=== PATIENT | male | born 1950 | race Two or more races ===

== ENCOUNTER 2019-03-14 19:26 | Emergency (ER) | payer OTHER ==
[~2019-03-14] VITALS: Ht 177.8 cm; Wt 81.6 kg
--- NOTE | 2019-03-14 19:30 | NUR ---
PT BIB [facility] WITH A C/O WITNESSED SYNCOPAL EPISODE AT HOME. PT DENIES TRAUMA. PT STATED THAT THIS HAPPENED TO HIM BEFORE AND HE DID NOT GO TO THE HOSPITAL. PT USUALLY GOES TO [facility] AND ALL HIS MEDICAL RECORDS ARE THERE. 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 PT ALSO HAS A HX OF PROSTATE REMOVAL 5 YRS AGO. PT IS ON A STATIN FOR HIS CHOLESTEROL. PT IS AA&O X4. PT IS ON THE MONITOR AND CONTINUOUS PULSE OX. VSS.
--- NOTE | 2019-03-14 19:30 | NUR ---
DR MURPHY IS AT THE BEDSIDE EVALUATING THE PT.
--- NOTE | 2019-03-14 19:45 | NUR ---
PT WAS MOVED TO ER #[id number]. PT IS ON THE MONITOR AND CONITNUOUS PULSE OX.
[2019-03-14 19:48] LABS: BASOPHILS # (AUTO) 0.1 /CMM (0.0-0.2); BASOPHILS % (AUTO) 1.1 % (0.0-2.0); EOSINOPHILS % (AUTO) 1.6 % (0.0-6.0); HEMATOCRIT 40 % (39-51); HEMOGLOBIN 13.4 g/dL (13.5-17.5); LYMPHOCYTES # (AUTO) 2.3 /CMM (0.8-4.8); LYMPHOCYTES % (AUTO) 29.6 % (20.0-44.0); MEAN CORPUSCULAR HGB CONC 33 g/dl (31.0-36.0); MEAN CORPUSCULAR VOLUME 94 fL (80-96); MONOCYTES # (AUTO) 1.1 /CMM (0.1-1.30); MONOCYTES % (AUTO) 13.7 % (2.0-12.0); NEUTROPHILS # (AUTO) 4.2 /CMM (1.8-8.9); PLATELET COUNT (AUTO) 298 /CMM (150-450); WHITE BLOOD COUNT (AUTO) 7.8 K/uL (4.3-11.0)
[2019-03-14 20:00] LABS: CALCIUM, SERUM 8.7 mg/dL (8.5-10.1); CARBON DIOXIDE 30 mmol/L (21-32); CHLORIDE 103 mmol/L (98-107); CREATININE 1.1 mg/dL (0.6-1.3); GLUCOSE 103 mg/dL (74-106); POTASSIUM 3.8 mmol/L (3.5-5.1); SODIUM SERUM 139 mmol/L (136-145); UREA NITROGEN, BLOOD 22 mg/dL (7-18)
[2019-03-14] MEDS ORDERED: IV NS 0.9% 500 ML BAG IV ONE (20:00)
[2019-03-14 20:06] LABS: ALANINE AMINOTRANSFERASE 29 U/L (12-78); ALBUMIN 3.6 g/dL (3.4-5.0); ALKALINE PHOSPHATASE 58 U/L (46-116); ASPARTATE AMINOTRANSFERASE 15 U/L (15-37); BILIRUBIN,TOTAL 0.2 mg/dL (0.2-1.0); TOTAL PROTEIN, SERUM 7.1 g/dL (6.4-8.2)
--- NOTE | 2019-03-14 20:15 | NUR ---
PT APPEARS TO BE RESTING COMFORTABLY WITH NO S/S OF PAIN OR DISTRESS.
--- NOTE | 2019-03-14 20:55 | NUR ---
PT IS RESTING COMFORTABLY. PT DENIES PAIN AT THIS TIME. RESP ARE EVEN AND UNLABORED. VSS.
--- NOTE | 2019-03-14 21:07 | NUR ---
CALLED LAB RE: TROPONIN REDRAW.
--- NOTE | 2019-03-14 21:58 | NUR ---
IV removed. Catheter intact and site benign. Pressure and 4x4 applied to site. No bleeding noted. Patient discharged to home in stable condition. Written and verbal after care instructions given. Patient verbalizes understanding of instruction. PT REC'D A COPY OF BOTH EKG'S AND ALL LABS.
[2019-03-14 21:59] VITALS: BP 136/87
== END 2019-03-14 22:00 | disposition home or self-care (01) ==
LOC: ER 19:27
DX: R55 Syncope and collapse (principal); E78.5 Hyperlipidemia, unspecified; Z86.73 Personal history of transient ischemic attack (TIA), and cerebral infarction without residual deficits
CPT/HCPCS: 36415; 71045; 80048; 80076; 84484 ×2; 85025; 85730; 93005 ×2; 99284; J7040